=== PATIENT | female | born 1970 | race Caucasian/White ===

== ENCOUNTER 2016-08-31 08:15 | Emergency (ER) | payer OTHER ==
[2016-08-31] MEDS ORDERED: IBUPROFEN 600 MG TAB PO STA (08:33)
--- NOTE | 2016-08-31 08:37 | ED ---
Back Pain HPI - General Chief Complaint: Back Pain/Injury Stated Complaint: BACK PAIN FROM FALL DOWN 2 STEPS Time Seen by Provider: 08/31/16 08:29 Source: patient, RN notes reviewed Mode of arrival: ambulatory Limitations: no limitations - History of Present Illness Initial Comments: 46-year-old female presents emergency Department chief complaint low back pain. Patient states at 2:30 this morning she was letting her dog out when she slipped on the 2 steps of her tach. Patient states she fell directly onto her buttocks, back region. Patient denies any head injury, LOC. Patient states she did have some pain initially but states it was worse after she was sitting to drive to work. Patient denies any bowel, bladder incontinence or retention. Patient denies any saddle anesthesias or lower extremity paresthesias. Patient denies any pain that radiates down her lower extremities. Patient states she is able to ambulate though she states she has discomfort in her buttocks. Patient denies any abdominal pain including nausea, vomiting, diarrhea constipation. Patient offers no other injuries or complaints - Related Data Home Medications Medication Instructions Recorded Confirmed Thrive 1 tab PO DAILY 08/31/16 08/31/16 Triamterene-Hctz 37.5-25Mg 1 tab PO DAILY 08/31/16 08/31/16 [Maxzide 37.5-25] Previous Rx's Medication Instructions Recorded Hydrocodone/Acetaminophen [Van 1 tab PO Q6HR PRN #20 tab 08/31/16 5-325] Allergies Allergy/AdvReac Type Severity Reaction Status Date / Time codeine Allergy Unknown Verified 08/31/16 09:01 Review of Systems ROS Statement: Those systems with pertinent positive or pertinent negative responses have been documented in the HPI. ROS Other: All systems not noted in ROS Statement are negative. Past Medical History Past Medical History: Hypertension History of Any Multi-Drug Resistant Organisms: None Reported Past Surgical History: Orthopedic Surgery, Tonsillectomy Additional Past Surgical History / Comment(s): lt. wrist surgery knee Past Psychological History: No Psychological Hx Reported Smoking Status: Never smoker Past Alcohol Use History: Occasional Past Drug Use History: None Reported General Exam Limitations: no limitations General appearance: alert, in no apparent distress Head exam: Present: atraumatic, normocephalic, normal inspection Neck exam: Present: normal inspection, full ROM. Absent: tenderness, meningismus, lymphadenopathy Respiratory exam: Present: normal lung sounds bilaterally. Absent: respiratory distress, wheezes, rales, rhonchi, stridor Cardiovascular Exam: Present: regular rate, normal rhythm, normal heart sounds. Absent: systolic murmur, diastolic murmur, rubs, gallop, clicks GI/Abdominal exam: Present: soft, normal bowel sounds. Absent: distended, tenderness, guarding, rebound, rigid Extremities exam: Present: normal inspection, full ROM, normal capillary refill , other (Lower extremity strength equal bilaterally, neurovascular intact equal warmth equal color no rashes). Absent: tenderness, pedal edema, joint swelling , calf tenderness Back exam: Present: normal inspection, full ROM, tenderness (Moderate tenderness of the lower lumbar region, sacral), paraspinal tenderness (On the left lumbar region), vertebral tenderness. Absent: CVA tenderness (R), CVA tenderness (L) Neurological exam: Present: alert, oriented X3, CN II-XII intact, reflexes normal. Absent: motor sensory deficit Skin exam: Present: warm, dry, intact, normal color. Absent: rash Course Vital Signs 08/31/16 08:26 Temperature 97.8 F Pulse Rate 76 Respiratory 18 Rate Blood Pressure 120/80 O2 Sat by Pulse 96 Oximetry Medical Decision Making - Medical Decision Making 46-year-old female presented for fall back pain. There is no compression vertebral fractures noted. Patient will be discharged with pain medication and close follow-up. Return parameters were discussed. Disposition Clinical Impression: Fall, Back pain, Sacral contusion Disposition: HOME SELF-CARE Condition: Stable Instructions: Acute Low Back Pain (ED) Additional Instructions: Please return to the Emergency Department if symptoms worsen or any other concerns. Prescriptions: Hydrocodone/Acetaminophen [Van 5-325] 1 tab PO Q6HR PRN #20 tab PRN Reason: Pain Time of Disposition: 09:06
--- NOTE | 2016-08-31 08:55 | XR ---
EXAMINATION TYPE: XR lumbosacral spine min 4V DATE OF EXAM: 08/31/2016 8:50 AM COMPARISON: NONE HISTORY: 46-year-old female low back pain after fall downstairs TECHNIQUE: 5 views FINDINGS: 5 lumbar type vertebral bodies. No pars interarticularis defect. Mild multilevel disc interspace narr owing. Vertebral body heights are preserved and alignment is maintained. IMPRESSION: Mild multilevel degenerative disc disease. No vertebral compression collapse or malalignment.
[2016-08-31 09:25] VITALS: BP 126/88; PULSE 43; RESP 16; TEMP 97.5
== END 2016-08-31 09:23 | disposition home or self-care (01) ==
LOC: EC 08:15
DX: S30.0XXA Contusion of lower back and pelvis, initial encounter (principal); M54.5 Low back pain; Z88.5 Allergy status to narcotic agent; W10.9XXA Fall (on) (from) unspecified stairs and steps, initial encounter
CPT/HCPCS: 72110; 99283

== ENCOUNTER 2016-10-07 10:21 | Emergency (ER) | payer OTHER ==
[2016-10-07 10:36] VITALS: RESP 18
[2016-10-07] MEDS ORDERED: IBUPROFEN 800 MG TAB PO STA (10:56)
[2016-10-07] MEDS ORDERED: ACETAMINOPHEN TAB 500 MG TAB PO STA (10:56)
[2016-10-07] MEDS ORDERED: BENZONATATE 100 MG CAP PO STA (10:56)
[2016-10-07] MEDS ORDERED: DEXAMETHASONE SOD PHOSPHATE 10 MG/ML 1 ML VIAL IM STA (10:56)
[2016-10-07 11:11] VITALS: BP 130/79; PULSE 82; TEMP 98.9
--- NOTE | 2016-10-07 11:21 | ED ---
General Adult HPI - General Chief complaint: Upper Respiratory Infection Stated complaint: RESPITORY Time Seen by Provider: 10/07/16 10:39 Source: patient, RN notes reviewed, old records reviewed Mode of arrival: ambulatory Limitations: no limitations - History of Present Illness Initial comments: This is a 46-year-old female ER for evaluation of cough and congestion, runny nose as well as sinus pressure and low-grade fever. Patient's also complaining of aches and pains here patient's of hypo-pressure, denies any chest pain. No significant travel history or sick contacts. Symptoms on and off for the last 2 days. Patient mainly concerned with cough and congestion - Related Data Home Medications Medication Instructions Recorded Confirmed Triamterene-Hctz 37.5-25Mg 1 tab PO DAILY 08/31/16 10/07/16 [Maxzide 37.5-25] Previous Rx's Medication Instructions Recorded Acetaminophen Tab [Tylenol Tab] 500 mg PO Q4H PRN #30 tablet 10/07/16 Albuterol Inhaler [Ventolin Hfa 1 - 2 puff INHALATION Q6HR #1 10/07/16 Inhaler] inhaler Azithromycin [Zithromax Z-pack] 0 mg PO DIRECTED #6 tab 10/07/16 Benzonatate [Tessalon Perles] 100 mg PO TID PRN #30 capsule 10/07/16 Naproxen [Naprosyn] 500 mg PO Q12HR #30 tab 10/07/16 Oseltamivir [Tamiflu] 75 mg PO Q12HR #14 cap 10/07/16 Allergies Allergy/AdvReac Type Severity Reaction Status Date / Time codeine Allergy Unknown Verified 10/07/16 10:48 Review of Systems ROS Statement: Those systems with pertinent positive or pertinent negative responses have been documented in the HPI. ROS Other: All systems not noted in ROS Statement are negative. Past Medical History Past Medical History: Hypertension History of Any Multi-Drug Resistant Organisms: None Reported Past Surgical History: Orthopedic Surgery, Tonsillectomy Additional Past Surgical History / Comment(s): lt. wrist surgery knee Past Psychological History: No Psychological Hx Reported Smoking Status: Never smoker Past Alcohol Use History: Occasional Past Drug Use History: None Reported General Exam Limitations: no limitations General appearance: alert, in no apparent distress Head exam: Present: atraumatic, normocephalic, normal inspection Eye exam: Present: normal appearance, PERRL, EOMI. Absent: scleral icterus, conjunctival injection, periorbital swelling ENT exam: Present: normal exam, mucous membranes moist Neck exam: Present: normal inspection. Absent: tenderness, meningismus, lymphadenopathy Respiratory exam: Present: normal lung sounds bilaterally. Absent: respiratory distress, wheezes, rales, rhonchi, stridor Cardiovascular Exam: Present: regular rate, normal rhythm, normal heart sounds. Absent: systolic murmur, diastolic murmur, rubs, gallop, clicks GI/Abdominal exam: Present: soft, normal bowel sounds. Absent: distended, tenderness, guarding, rebound, rigid Extremities exam: Present: normal inspection, full ROM, normal capillary refill. Absent: tenderness, pedal edema, joint swelling, calf tenderness Back exam: Present: normal inspection Neurological exam: Present: alert, oriented X3, CN II-XII intact Psychiatric exam: Present: normal affect, normal mood Skin exam: Present: warm, dry, intact, normal color. Absent: rash Course Vital Signs 10/07/16 10/07/16 10:30 11:10 Temperature 98.4 F 98.9 F Pulse Rate 85 82 Respiratory 18 18 Rate Blood Pressure 135/96 130/79 O2 Sat by Pulse 98 99 Oximetry Medical Decision Making - Medical Decision Making 46 female in the ER for evaluation of URI symptoms, runny nose cough and congestion, patient concern for sinus infection, also with body aches and pains. Patient given adequate fevers control. Patient states she has no specific complaints, no acute distress for discharge home - Lab Data Lab Results 10/07/16 Range/Units 10:30 Influenza Type A RNA Not Detected (Not Detectd) Influenza Type B (PCR) Detected H (Not Detectd) Disposition Clinical Impression: Influenza, Upper respiratory infection Disposition: HOME SELF-CARE Condition: Good Instructions: Upper Respiratory Infection (ED), Influenza (ED) Prescriptions: Acetaminophen Tab [Tylenol Tab] 500 mg PO Q4H PRN #30 tablet PRN Reason: Fever Albuterol Inhaler [Ventolin Hfa Inhaler] 1 - 2 puff INHALATION Q6HR #1 inhaler Azithromycin [Zithromax Z-pack] 0 mg PO DIRECTED #6 tab Benzonatate [Tessalon Perles] 100 mg PO TID PRN #30 capsule PRN Reason: Cough Naproxen [Naprosyn] 500 mg PO Q12HR #30 tab Oseltamivir [Tamiflu] 75 mg PO Q12HR #14 cap Referrals: Jessica Díaz MD [Primary Care Provider] - 1-2 days
== END 2016-10-07 12:10 | disposition home or self-care (01) ==
LOC: EC 10:21
DX: J11.1 Influenza due to unidentified influenza virus with other respiratory manifestations (principal); I10 Essential (primary) hypertension; Z79.899 Other long term (current) drug therapy; Z88.5 Allergy status to narcotic agent
CPT/HCPCS: 87502; 99283; 96372; J1100; 90472

== ENCOUNTER → 2017-12-04 | Outpatient (CLI) | payer OTHER ==
--- NOTE | 2017-12-04 21:34 | MR ---
EXAMINATION TYPE: MR lumbar spine wo con DATE OF EXAM: 12/04/2017 COMPARISON: Plain film 08/31/2016 HISTORY: Low Back pain x2 months TECHNIQUE: Multiplanar, multisequence images of the lumbar spine were acquired. L1-L2: Normal disc appearance without desiccation. No herniation, protrusion or disc bulging. No ca nal stenosis is present. Foramina are patent bilaterally. L2-L3: Normal disc appearance without desiccation. No herniation, protrusion or disc bulging. No ca nal stenosis is present. Foramina are patent bilaterally. L3-L4: Normal disc appearance without desiccation. No herniation, protrusion or disc bulging. No ca nal stenosis is present. Foramina are patent bilaterally. L4-L5: Loss of disc height signal is compatible with disc desiccation and degenerative disc disease, there is endplate discogenic marrow signal change. No significant foraminal encroachment. Mild facet arthropathy with hypertrophy ligamentum flavum encroaches on the lateral recesses, no significant is. Posterior broad-based disc bulge causes only mild anterior effacement of the thecal sac. L5-S1: Some loss of disc height signal is present associated with endplate discogenic marrow signal c hange. Lateral extension of endplate disc complex causes some mild encroachment of the foramina great er on the left, posterior central broad-based disc bulge contacts anterior thecal sac and possibly th e proximal left S1 nerve root greater than right. There is some facet arthropathy present. Lumbar segments are intact. No paraspinal masses are identified. Conus medullaris has a normal appe arance. There is a mild spinal curvature. Central cord distally shows possible prominent central rico l or small 1 mm syrinx. IMPRESSION: Degenerative disc disease, spinal curvature, facet arthropathy. Findings in the distal cervical cord as described. Consider thoracic cord MRI.
== END | disposition home or self-care (01) ==
LOC: RADMRIMAIN 20:03
PROVIDERS: ATTEND Physical Medicine & Rehabilitation
DX: M51.16 Intervertebral disc disorders with radiculopathy, lumbar region (principal); M46.96 Unspecified inflammatory spondylopathy, lumbar region
CPT/HCPCS: 72148

== ENCOUNTER → 2017-12-13 | Outpatient (CLI) | payer OTHER ==
--- NOTE | 2017-12-13 09:06 | MR ---
EXAMINATION TYPE: MR thoracic spine wo con DATE OF EXAM: 12/13/2017 COMPARISON: MRI lumbar spine dated 12/04/2017 HISTORY: Abnormal MRI / Cord signal changes, thoracic, pain TECHNIQUE: Standard multiplanar, multisequence MRI of the thoracic spine was performed without contra st per departmental protocol FINDINGS: There is partial visualization of the C6-C7 vertebral level with annular tear and probable disc herniation. Within the thoracic vertebral levels there is no focal disc herniation, neural bala inal narrowing or spinal canal stenosis. Very small disc bulges are seen and T10-T11 and T11-T12. Mil d multilevel disc desiccation is seen throughout the thoracic spine. From approximately the T3-T4 interspace to the inferior endplate of T5 there is a 4.3 cm syrinx. 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 The thoracic vertebral bodies maintain normal vertebral body height and alignment. Bone marrow signal is unremarkable. Paraspinal muscles are also unremarkable. IMPRESSION: 1. Approximately 4.3 cm thoracic cord syrinx from the T3-T4 disc interspace level extending to the T5 level. This could be congenital or acquired. Congenital causes include Chiari malformation, Dandy-Wa lker malformation and Klippel-Feil syndrome. Acquired causes may be posttraumatic, postinflammatory, neoplastic or secondary to spinal canal stenosis. A probable disc herniation resulting in spinal rico l stenosis is seen cephalad to this at C6-C7 but only partially visualized on this thoracic exam. Cer vical spine MRI could be performed for further evaluation. 2. No evidence of disc herniation or spinal canal stenosis within the thoracic spine. Mild multilevel disc desiccation.
== END | disposition home or self-care (01) ==
LOC: RADMRIMAIN 07:18
PROVIDERS: ATTEND Physical Medicine & Rehabilitation
DX: M51.17 Intervertebral disc disorders with radiculopathy, lumbosacral region (principal); M47.27 Other spondylosis with radiculopathy, lumbosacral region; K21.9 Gastro-esophageal reflux disease without esophagitis; R20.2 Paresthesia of skin
CPT/HCPCS: 72146

== ENCOUNTER 2018-04-07 15:53 | Emergency (ER) | payer OTHER ==
[2018-04-07 16:00] VITALS: RESP 18; TEMP 98.7
[2018-04-07] MEDS ORDERED: KETOROLAC 30 MG/ML 1 ML VIAL IVP STA (16:24)
[2018-04-07] MEDS ORDERED: SODIUM CHLORIDE 0.9% 1,000 ML IV ONE (16:24)
[2018-04-07] MEDS ORDERED: DICYCLOMINE 20 MG TAB PO STA (16:24)
--- NOTE | 2018-04-07 16:28 | ED ---
Abdominal Pain HPI - General Chief Complaint: Abdominal Pain Stated Complaint: Abd pain Time Seen by Provider: 04/07/18 16:07 Source: patient Mode of arrival: ambulatory Limitations: no limitations - History of Present Illness Initial Comments: Patient is a 47-year-old female presents with a chief complaint of lower abdominal pain. This is been going on for 2 days. Patient cannot identify an inciting incident. There no aggravating or alleviating factors. Patient admits to chills but has not measured a fever. She admits to decreased appetite , and worsening of her pain with eating. Patient states she has had 2-3 bowel movements today that are softer than normal. She states that she is currently on her period though she has had an ablation, and a tubal ligation. Patient does not have any abdominal surgeries in the past. - Related Data Home Medications Medication Instructions Recorded Confirmed Triamterene-Hctz 37.5-25Mg 1 tab PO DAILY 08/31/16 04/07/18 [Maxzide 37.5-25] Ibuprofen [Motrin Ib] 600 mg PO Q8H PRN 04/07/18 04/07/18 Previous Rx's Medication Instructions Recorded Acetaminophen Tab [Tylenol Tab] 1,000 mg PO Q8H #20 tablet 04/07/18 Ciprofloxacin HCl 500 mg PO BID #14 tablet 04/07/18 Dicyclomine [Bentyl] 20 mg PO QID #20 tablet 04/07/18 Ibuprofen [Motrin] 800 mg PO Q8H #20 tab 04/07/18 Ondansetron Odt [Zofran Odt] 4 mg PO Q8HR PRN #12 tab 04/07/18 metroNIDAZOLE [Flagyl] 500 mg PO Q8HR #21 tab 04/07/18 Allergies Allergy/AdvReac Type Severity Reaction Status Date / Time codeine Allergy Unknown Verified 04/07/18 16:11 Review of Systems ROS Statement: Those systems with pertinent positive or pertinent negative responses have been documented in the HPI. ROS Other: All systems not noted in ROS Statement are negative. Gastrointestinal: Reports: abdominal pain Past Medical History Past Medical History: Hypertension History of Any Multi-Drug Resistant Organisms: None Reported Past Surgical History: Orthopedic Surgery, Tonsillectomy Additional Past Surgical History / Comment(s): lt. wrist surgery knee Past Psychological History: No Psychological Hx Reported Smoking Status: Never smoker Past Alcohol Use History: Occasional Past Drug Use History: None Reported General Exam Limitations: no limitations General appearance: alert, in no apparent distress Head exam: Present: atraumatic, normocephalic Eye exam: Present: normal appearance ENT exam: Present: normal exam Neck exam: Present: normal inspection Respiratory exam: Present: normal lung sounds bilaterally. Absent: respiratory distress, wheezes Cardiovascular Exam: Present: regular rate, normal rhythm GI/Abdominal exam: Present: soft, tenderness (Patient has tenderness to palpation in the left and right lower quadrants.). Absent: distended Rectal exam: Present: deferred Extremities exam: Present: normal inspection Back exam: Present: normal inspection, full ROM. Absent: CVA tenderness (R), CVA tenderness (L) Neurological exam: Present: alert, oriented X3 Psychiatric exam: Present: normal affect, normal mood Skin exam: Present: warm, dry, intact Course Vital Signs 04/07/18 15:57 Temperature 98.7 F Pulse Rate 98 Respiratory 18 Rate Blood Pressure 140/77 O2 Sat by Pulse 100 Oximetry Medical Decision Making - Medical Decision Making Patient presents with chief complaint of abdominal pain. On initial evaluation , vitals are stable, patient is noted to distress. She is reevaluated basic labs including liver profile and lipase, urinalysis, urine test. Patient to be evaluated with a computed tomography scan of the abdomen and pelvis with IV contrast. 5:50 PM E evaluation of this patient is unremarkable. Computed tomography scan of the pelvis shows a focal area of diverticulitis with fat stranding around the affected colon. There is no evidence of abscess or perforation. Appendix appears normal. On reevaluation, the patient states that she feels somewhat improved. She was started on ciprofloxacin and Flagyl in the emergency department. She'll be prescribed ciprofloxacin, Flagyl, Zofran, Motrin, and Tylenol. She was instructed on the use of these medications. She was instructed to follow-up with primary care in 1-2 days, return to the emergency department if new or worsening symptoms occur. - Lab Data Result diagrams: 04/07/18 16:24 04/07/18 16:24 Lab Results 04/07/18 04/07/18 04/07/18 Range/Units 16:24 16:24 16:24 WBC 7.5 (3.8-10.6) k/uL RBC 4.00 (3.80-5.40) m/uL Hgb 12.3 (11.4-16.0) gm/dL Hct 36.2 (34.0-46.0) % MCV 90.3 (80.0-100.0) fL MCH 30.8 (25.0-35.0) pg MCHC 34.2 (31.0-37.0) g/dL RDW 12.6 (11.5-15.5) % Plt Count 231 (150-450) k/uL Neutrophils % 72 % Lymphocytes % 19 % Monocytes % 4 % Eosinophils % 4 % Basophils % 1 % Neutrophils # 5.4 (1.3-7.7) k/uL Lymphocytes # 1.4 (1.0-4.8) k/uL Monocytes # 0.3 (0-1.0) k/uL Eosinophils # 0.3 (0-0.7) k/uL Basophils # 0.0 (0-0.2) k/uL Sodium 140 (137-145) mmol/L Potassium 3.1 L (3.5-5.1) mmol/L Chloride 103 (98-107) mmol/L Carbon Dioxide 26 (22-30) mmol/L Anion Gap 11 mmol/L BUN 14 (7-17) mg/dL Creatinine 0.82 (0.52-1.04) mg/dL Est GFR (CKD-EPI)AfAm >90 (>60 ml/min/1.73 sqM) Est GFR (CKD-EPI)NonAf 87 (>60 ml/min/1.73 sqM) Glucose 110 H (74-99) mg/dL Calcium 9.1 (8.4-10.2) mg/dL Total Bilirubin 1.0 (0.2-1.3) mg/dL AST 18 (14-36) U/L ALT 20 (9-52) U/L Alkaline Phosphatase 55 (38-126) U/L Total Protein 6.6 (6.3-8.2) g/dL Albumin 3.8 (3.5-5.0) g/dL Lipase 165 (23-300) U/L HCG, Qual Not Detected Urine Color Light Yellow Urine Appearance Clear (Clear) Urine pH 6.5 (5.0-8.0) Ur Specific Mallory 1.005 (1.001-1.035) Urine Protein Negative (Negative) Urine Glucose (UA) Negative (Negative) Urine Ketones Negative (Negative) Urine Blood Trace H (Negative) Urine Nitrite Negative (Negative) Urine Bilirubin Negative (Negative) Urine Urobilinogen <2.0 (<2.0) mg/dL Ur Leukocyte Esterase Negative (Negative) Urine RBC 1 (0-5) /hpf Urine WBC 1 (0-5) /hpf Ur Squamous Epith Cells 2 (0-4) /hpf Urine Bacteria Occasional H (None) /hpf Disposition Clinical Impression: Diverticulitis Disposition: HOME SELF-CARE Condition: Good Prescriptions: Acetaminophen Tab [Tylenol Tab] 1,000 mg PO Q8H #20 tablet Ciprofloxacin HCl 500 mg PO BID #14 tablet Ibuprofen [Motrin] 800 mg PO Q8H #20 tab metroNIDAZOLE [Flagyl] 500 mg PO Q8HR #21 tab Ondansetron Odt [Zofran Odt] 4 mg PO Q8HR PRN #12 tab PRN Reason: Nausea Is patient prescribed a controlled substance at d/c from ED?: No Referrals: Jessica Díaz MD [Primary Care Provider] - 1-2 days
[2018-04-07 16:44] LABS: Basophils % (A) 1 %; Eosinophils # (A) 0.3 k/uL (0-0.7); Eosinophils % (A) 4 %; HCT 36.2 % (34.0-46.0); HGB 12.3 gm/dL (11.4-16.0); Lymphocytes # (A) 1.4 k/uL (1.0-4.8); Lymphocytes % (A) 19 %; MCH 30.8 pg (25.0-35.0); MCHC 34.2 g/dL (31.0-37.0); MCV 90.3 fL (80.0-100.0); Mean Platelet Volume 6.3; Monocytes # (A) 0.3 k/uL (0-1.0); Monocytes % (A) 4 %; Neutrophils # (A) 5.4 k/uL (1.3-7.7); Neutrophils % (A) 72 %; Platelet Count 231 k/uL (150-450); RDW 12.6 % (11.5-15.5); WBC 7.5 k/uL (3.8-10.6)
[2018-04-07 16:50] LABS: Appearance,Urine Clear (Clear); Bacteria,Urine Occasional /hpf; Bilirubin,Urine Negative (Negative); Blood,Urine Trace (Negative); Color,Urine Light Yellow; Glucose,Urine (UA) Negative (Negative); Ketones,Urine Negative (Negative); Leukocyte Esterase,Urine Negative (Negative); Nitrite,Urine Negative (Negative); PH, Urine 6.5 (5.0-8.0); Protein,Urine Negative (Negative); RBC,Urine 1 /hpf (0-5); Specific Gravity,Urine 1.005 (1.001-1.035); Squamous Epithelial Cell,Urine 2 /hpf (0-4); Urobilinogen,Urine <2.0 mg/dL (<2.0); WBC,Urine 1 /hpf (0-5)
[2018-04-07 16:55] LABS: ALT 20 U/L (9-52); AST 18 U/L (14-36); Albumin 3.8 g/dL (3.5-5.0); Alkaline Phosphatase 55 U/L (38-126); Anion Gap 11 mmol/L; Blood Urea Nitrogen 14 mg/dL (7-17); Calcium 9.1 mg/dL (8.4-10.2); Carbon Dioxide 26 mmol/L (22-30); Chloride 103 mmol/L (98-107); Glucose 110 mg/dL (74-99); Lipase 165 U/L (23-300); Potassium 3.1 mmol/L (3.5-5.1); Sodium 140 mmol/L (137-145); Total Protein 6.6 g/dL (6.3-8.2)
[2018-04-07 16:58] LABS: HCG,Qualitative Serum Not Detected
--- NOTE | 2018-04-07 17:17 | CT ---
EXAMINATION TYPE: CT abdomen pelvis w con DATE OF EXAM: 04/07/2018 COMPARISON: None HISTORY: lower abdominal pain CT DLP: 1166.9 mGycm Automated exposure control for dose reduction was used. TECHNIQUE: Helical acquisition of images was performed from the lung bases through the pelvis. CONTRAST: Performed without Oral Contrast and with IV Contrast, patient injected with 100mL mL of Isovue 300. FINDINGS: There is mild subsegmental atelectasis at the posterior lung bases. There is no pleural effusion. Hea rt size is normal. Liver spleen pancreas appear normal. Gallbladder is contracted. Bile ducts are not dilated. There is no adrenal mass. Kidneys show satisfactory contrast opacification. There is no hydronephrosi s. Ureters are not dilated. There is no retroperitoneal adenopathy. Appendix appears normal. There is mild fat stranding around the mid sigmoid colon. There are surgical clips from apparent tubal ligati on. There is mild wall thickening on the mid sigmoid colon. Bladder distends smoothly. Uterus is ante verted. There is no free fluid in the pelvis. There is no sign of free air. Lumbar spine is intact. T here is no evidence of a hernia. IMPRESSION: THERE IS MILD FAT STRANDING AROUND THE MID SIGMOID COLON CONSISTENT WITH MILD FOCAL DIVERTICULITIS. T HERE ARE A FEW SCATTERED SIGMOID DIVERTICULA. NO ABSCESS. NORMAL APPENDIX.
[2018-04-07] MEDS ORDERED: CIPROFLOXACIN HCL 500 MG TAB PO STA (17:46)
[2018-04-07] MEDS ORDERED: metroNIDAZOLE 500 MG TAB PO STA (17:46)
[2018-04-07 18:00] VITALS: BP 125/76; PULSE 67
== END 2018-04-07 18:09 | disposition home or self-care (01) ==
LOC: EC 15:53
DX: K57.32 Diverticulitis of large intestine without perforation or abscess without bleeding (principal); I10 Essential (primary) hypertension; Z88.5 Allergy status to narcotic agent; Z79.899 Other long term (current) drug therapy; Z98.51 Tubal ligation status
CPT/HCPCS: 36415; 80053; 83690; 85025; 81001; 84703; 74177; 99284; 96374; 96361; J1885; Q9967

== ENCOUNTER → 2018-12-20 | Outpatient (CLI) | payer OTHER ==
--- NOTE | 2018-12-21 06:42 | MR ---
EXAMINATION TYPE: MR thoracic spine wo con DATE OF EXAM: 12/20/2018 COMPARISON: MRI thoracic spine December 13, 2017. HISTORY: Abnormal MRI, mid back pain, thoracic cord syrinx. TECHNIQUE: Multiplanar, multisequence imaging of thoracic spine is performed without contrast FINDINGS: There is redemonstration of posterior disc herniation effacing the anterior thecal sac at C 6-C7 level on sagittal image 9. There is redemonstration of central canal prominence or syrinx beginn ing inferior T3 level extending through the inferior T5 vertebra over roughly 4.2 cm segment, there a re smaller syrinxes identified below this for reference. T6 level sagittal image 9 as well as T7 and T8 involvement sagittal image 8. No significant change from prior. Alignment is stable. Vertebral bod y heights are maintained. No large posterior disc herniations are seen on sagittal images. Bone marro w signal intensity is preserved. Axial images confirm larger area of syrinx centered near the T4 vertebra. Smaller syrinx inferior to this is redemonstrated. There is involvement also identified in the lower thoracic spinal canal for r eference axial image 3 near the thoracolumbar junction. No suspicious disc herniations are present. IMPRESSION: Overall stable findings, long segment syrinx of the thoracic spinal cord most prominent c entered near the T4 vertebra.
== END | disposition home or self-care (01) ==
LOC: RADMRIMAIN 16:45
PROVIDERS: ATTEND Physical Medicine & Rehabilitation
DX: G95.0 Syringomyelia and syringobulbia (principal)
CPT/HCPCS: 72146

== ENCOUNTER → 2019-03-19 | Outpatient (CLI) | payer BC ==
--- NOTE | 2019-03-20 18:39 | US ---
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 GLAND SIZE: Right Lobe: 4.3 x 1.3 x 1.5 cm Overall Parenchyma: homogenous Left Lobe: 4.5 x 1.1 x 1.3 cm Overall Parenchyma: homogeneous Isthmus Thickness: 0.4 cm NODULES RIGHT: # of nodules measured on right: 0 LEFT: # of nodules measured on left: 0 ISTHMUS: # of nodules measured in the isthmus: 0 Bilateral neck scanned, no evidence of lymphadenopathy. Normal thyroid ultrasound. IMPRESSION: 1. Normal thyroid
== END | disposition home or self-care (01) ==
LOC: RADUSWWP 17:01
PROVIDERS: ATTEND Internal Medicine
DX: E01.0 Iodine-deficiency related diffuse (endemic) goiter (principal)
CPT/HCPCS: 76536

== ENCOUNTER → 2021-04-01 | Outpatient (CLI) | payer BC ==
[2021-04-01 19:16] LABS: Basophils # (A) 0.04 X 10*3/uL (0.00-0.10); Basophils % (A) 0.6 %; Eosinophils # (A) 0.28 X 10*3/uL (0.04-0.35); Eosinophils % (A) 4.1 %; HCT 40.9 % (37.2-46.3); HGB 13.5 g/dL (12.0-15.0); Lymphocytes # (A) 2.07 X 10*3/uL (0.90-5.00); Lymphocytes % (A) 30.4 %; MCH 30.5 pg (27.0-32.0); MCV 92.5 fL (80.0-97.0); Mean Platelet Volume 9.6 fL (9.5-12.2); Monocytes # (A) 0.55 X 10*3/uL (0.20-1.00); Monocytes % (A) 8.1 %; Neutrophils # (A) 3.85 X 10*3/uL (1.80-7.70); Neutrophils % (A) 56.4 %; Platelet Count 331 X 10*3/uL (140-440); RBC 4.42 X 10*6/uL (4.10-5.20); RDW 13.2 % (11.5-14.5); WBC 6.82 X 10*3/uL (4.50-10.00)
[2021-04-02 01:36] LABS: African American GFR (CKD) 56.2 (60.0-200.0); Albumin 4.6 g/dL (3.80-4.90); Albumin/Globulin Ratio 1.77 (1.60-3.17); BUN/Creat Ratio 11.54 Ratio (12.00-20.00); Calcium 9.7 mg/dL (8.7-10.3); Chol/HDL Ratio 5.53; Globulin 2.6 g/dL (1.6-3.3); Non-African American GFR(CKD) 48.5 (60.0-200.0); Potassium 3.8 mmol/L (3.5-5.5); Total Bilirubin 1.2 mg/dL (0.2-1.2); Total Protein 7.2 g/dL (6.2-8.2)
== END | disposition home or self-care (01) ==
LOC: LABWHC1 09:09
PROVIDERS: ATTEND Internal Medicine
DX: Z00.01 Encounter for general adult medical examination with abnormal findings (principal); Z13.220 Encounter for screening for lipoid disorders; Z13.228 Encounter for screening for other metabolic disorders; I10 Essential (primary) hypertension
CPT/HCPCS: 36415; 80053; 80061; 85025

== ENCOUNTER 2021-06-02 20:27 | Observation (INO) | payer BC, OTHER ==
[2021-06-02 21:29] LABS: Basophils # (A) 0.1 k/uL (0-0.2); Basophils % (A) 1 %; Eosinophils # (A) 0.3 k/uL (0-0.7); Eosinophils % (A) 4 %; HCT 37.6 % (34.0-46.0); HGB 12.9 gm/dL (11.4-16.0); Lymphocytes # (A) 2.4 k/uL (1.0-4.8); Lymphocytes % (A) 34 %; MCH 30.5 pg (25.0-35.0); MCHC 34.4 g/dL (31.0-37.0); MCV 88.7 fL (80.0-100.0); Mean Platelet Volume 6.8; Monocytes # (A) 0.4 k/uL (0-1.0); Monocytes % (A) 5 %; Neutrophils # (A) 3.9 k/uL (1.3-7.7); Neutrophils % (A) 55 %; Platelet Count 338 k/uL (150-450); RBC 4.24 m/uL (3.80-5.40); RDW 13.4 % (11.5-15.5); WBC 7.2 k/uL (3.8-10.6)
[2021-06-02 21:35] LABS: Albumin 3.9 g/dL (3.5-5.0); Magnesium 1.9 mg/dL (1.6-2.3); Potassium 3.2 mmol/L (3.5-5.1); Total Bilirubin 0.8 mg/dL (0.2-1.3); Total Protein 6.9 g/dL (6.3-8.2)
[2021-06-02] MEDS ORDERED: LABETALOL 5 MG/ML VIAL MDV IVP STA (21:35)
[2021-06-02 21:43] LABS: INR 0.9 (<1.2); Partial Thromboplastin Time 22.4 sec (22.0-30.0); Prothrombin Time 9.5 sec (9.0-12.0)
--- NOTE | 2021-06-02 22:02 | XR ---
EXAMINATION TYPE: XR chest 2V DATE OF EXAM: 06/02/2021 COMPARISON: NONE HISTORY: Chest pain TECHNIQUE: 2 views FINDINGS: There is no heart failure nor confluent pneumonic infiltrate. Costophrenic angles are clear . Bony thorax is intact. There are chest leads. IMPRESSION: No active cardiomegaly disease.
[2021-06-02 22:10] LABS: Acetaminophen <10.0 ug/mL; Magnesium 1.9 mg/dL (1.6-2.3); Phosphorus 2.6 mg/dL (2.5-4.5); Salicylate <1.0 mg/dL
[2021-06-02] MEDS ORDERED: POTASSIUM BICARBONATE/CIT AC 20 MEQ TABLET.EFF PO ONE (22:30)
--- NOTE | 2021-06-02 22:58 | ED ---
Chest Pain HPI - General Chief Complaint: Chest Pain Stated Complaint: Chest pain, SOB Time Seen by Provider: 06/02/21 21:13 Source: patient Mode of arrival: ambulatory - Related Data Home Medications Medication Instructions Recorded Confirmed Metoprolol Tartrate [Lopressor] 25 mg PO BID 06/02/21 06/02/21 Ozempic 4mg/3ml 1 mg SQ SA 06/02/21 06/02/21 Venlafaxine HCl ER [Effexor Xr] 75 mg PO DAILY 06/02/21 06/02/21 amLODIPine [Norvasc] 5 mg PO DAILY 06/02/21 06/02/21 traMADol HCL 50 - 100 mg PO TID PRN 06/02/21 06/02/21 Allergies Allergy/AdvReac Type Severity Reaction Status Date / Time codeine Allergy Unknown Verified 06/02/21 22:50 losartan AdvReac Rash/Hives Verified 06/02/21 22:50 Review of Systems ROS Statement: Those systems with pertinent positive or pertinent negative responses have been documented in the HPI. ROS Other: All systems not noted in ROS Statement are negative. Past Medical History Past Medical History: Hypertension History of Any Multi-Drug Resistant Organisms: None Reported Past Surgical History: Hysterectomy, Orthopedic Surgery, Tonsillectomy Additional Past Surgical History / Comment(s): lt. wrist surgery knee, back injectiond for compressed discs Past Psychological History: No Psychological Hx Reported Smoking Status: Never smoker Past Alcohol Use History: Occasional Past Drug Use History: None Reported Course Vital Signs 06/02/21 06/02/21 06/02/21 21:14 21:56 22:45 Pulse Rate 82 73 Respiratory 18 18 18 Rate Blood Pressure 167/113 179/120 176/119 O2 Sat by Pulse 98 99 98 Oximetry 06/02/21 06/03/21 23:42 00:56 Pulse Rate 77 Respiratory 18 Rate Blood Pressure 159/111 148/103 O2 Sat by Pulse Oximetry Procedures - Ford Protocol (Time Out) Nurse: Jeannine Nuñez Disposition Clinical Impression: Chest pain, Hypertension, Uncontrolled hypertension Disposition: ADMITTED IP TO THIS HOSP Condition: Undetermined Is patient prescribed a controlled substance at d/c from ED?: No Referrals: Fani Hernadez MD [Primary Care Provider] - 1-2 days
--- NOTE | 2021-06-02 23:26 | CT ---
EXAMINATION TYPE: CT angio chest DATE OF EXAM: 06/02/2021 COMPARISON: None HISTORY: left side chest pain CT DLP: 644.6 mGycm Automated exposure control for dose reduction was used. CONTRAST: Performed with IV Contrast, patient injected with 60 mL of Isovue 370. There are 3-D post processed images. The lungs are clear of infiltrate. There is no evidence of a pulmonary mass. There is subsegmental at electasis at the lung bases. There is no pleural effusion. Heart size is normal. There is no pericard ial effusion. There are no hilar masses. There is no mediastinal adenopathy. Thoracic aorta is intact. Ascending ao rta measures 3.8 cm. There is no dissection. There is normal contrast opacification of the pulmonary arteries. There are no filling defects. The thoracic spine is intact. There is no compression fracture. Sternum is intact. The ribs appear in tact. IMPRESSION: No evidence of pulmonary embolism.
[2021-06-03 00:19] LABS: Amphetamine Screen,Urine Not Detected (NotDetected); Barbiturate Screen,Urine Not Detected (NotDetected); Benzodiazepines Screen,Urine Not Detected (NotDetected); Cocaine Screen,Urine Not Detected (NotDetected); Methadone Screen, Urine Not Detected (NotDetected); Opiate Screen,Urine Not Detected (NotDetected); Oxycodone Screen, Urine Not Detected (NotDetected); Phencyclidine Screen,Urine Not Detected (NotDetected); Tricyclic Antidepressant,Urine Not Detected (NotDetected); Urn Cannabinoid Scrn Not Detected (NotDetected)
[2021-06-03] MEDS ORDERED: MORPHINE SULFATE 4 MG/ML SYRINGE IV PRN (01:15)
[2021-06-03] MEDS ORDERED: NITROGLYCERIN SL TABS 0.4 MG TAB SUBLINGUAL PRN (01:15)
[2021-06-03] MEDS ORDERED: ASPIRIN 81 MG PO STA (01:15)
[2021-06-03] MEDS ORDERED: SODIUM CHLORIDE 0.9% 1,000 ML IV SCH (01:15)
--- NOTE | 2021-06-03 08:15 | P.CRDCN ---
History of Present Illness History of present illness: HISTORY OF PRESENTING ILLNESS This is a pleasant 50-year-old female past medical history significant for hypertension, compressed disc. She follows with Dr. Hernadez. She does not follow with a community representative. We have been asked to see in consultation for chest pain. Patient presents to the emergency department with chest tightness that started at 6:30 PM yesterday. Chest tightness is located in the center of her chest/right sided. It radiates to her back. She states it is aggravated by activity/exertion. She states it improved by laying on her left side. She did have associated mild shortness of breath. She denies any associated palpitations, diaphoresis, nausea, vomiting, lightheadedness, dizziness. She denies any symptoms of presyncope or syncope. She denies any symptoms of orthopnea or PND. She denies history or current tobacco use. She states she had the same pain at 1 AM but is now resolved. Denies history of diabetes, coronary disease, PR, stroke. She denies a family history of heart disease. She states her blood pressure management, she was on triamterene and lisinopril however had acute kidney injury and these medications were stopped. She also was started on losartan and she states she broke out in hives and this medication was stopped. DIAGNOSTICS EKG reveals sinus rhythm, heart rate 75, no significant ST or T-wave abnormalities. Telemetry tracings indicate sinus mechanism heart rate in the 70s CT chest revealed no pulmonary embolism. Abdominal aorta 3.8 cm. Chest xray no acute cardiopulmonary process Laboratory reviewed, CBC unremarkable, troponin negative 2, d-dimer 0.78, sodium 137, potassium 4.2, BUN 13, serum 0.9, TSH within normal limits, proBNP 117, urine toxicology negative, COVID-19 PCR negative Current home medications include Effexor 75 mg daily, amlodipine 5 mg daily, metoprolol tartrate 25 mg twice a day REVIEW OF SYSTEMS At the time of my exam: CONSTITUTIONAL: Denies fever or chills. CARDIOVASCULAR:+chest pain, +shortness of breath, Denies orthopnea, PND or palpitations. RESPIRATORY: Denies cough. GASTROINTESTINAL: Denies abdominal pain, diarrhea, constipation, nausea or vomiting. MUSCULOSKELETAL: Denies myalgias. NEUROLOGIC: Denies numbness, tingling, headache or weakness. ENDOCRINE: Denies fatigue, weight change, polydipsia or polyurina. GENITOURINARY: Denies burning, hematuria or urgency with micturation. HEMATOLOGIC: Denies history of anemia or bleeding. PHYSICAL EXAMINATION Blood pressure 161/108, heart 73, afebrile oxygen saturation is 96% on room air CONSTITUTIONAL: No apparent distress. HEENT: Head is normocephalic. Pupils are equal, round. Sclerae anicteric. Mucous membranes of the mouth are moist. No JVD. No carotid bruit. CHEST EXAMINATION: Lungs are clear to auscultation. No chest wall tenderness is noted on palpation or with deep breathing. HEART EXAMINATION: Regular rate and rhythm. S1, S2 heard. No murmurs, gallops or rub. ABDOMEN: Soft, nontender. Positive bowel sounds. EXTREMITIES: 2+ peripheral pulses, no lower extremity edema and no calf tenderness. SKIN: warm, dry NEUROLOGIC EXAMINATION: Patient is awake, alert and oriented x3. ASSESSMENT Chest pain, atypical, acute coronary symptoms ruled out History of hypertension PLAN An acute coronary event has been ruled out with no EKG evidence of ischemia and negative cardiac enzymes. Obtain 2D echocardiogram and doppler study to assess cardiac structure and function. Lipid panel pending Perform stress echo test to assess for stress induced cardiac ischemia. If abnormal will consider coronary angiography. If stress test is normal, and echocardiogram with no acute findings. Okay to discharge from cardiology perspective. Thank you kindly for this consultation. Nurse Practitioner note has been reviewed, I agree with a documented findings and plan of care. Patient was seen and examined. Past Medical History Past Medical History: Hypertension History of Any Multi-Drug Resistant Organisms: None Reported Past Surgical History: Hysterectomy, Orthopedic Surgery, Tonsillectomy Additional Past Surgical History / Comment(s): lt. wrist surgery knee, back injectiond for compressed discs Past Anesthesia/Blood Transfusion Reactions: No Reported Reaction Past Psychological History: No Psychological Hx Reported Smoking Status: Never smoker Past Alcohol Use History: Occasional Past Drug Use History: None Reported Medications and Allergies Home Medications Medication Instructions Recorded Confirmed Type Metoprolol Tartrate [Lopressor] 25 mg PO BID 06/02/21 06/02/21 History Ozempic 4mg/3ml 1 mg SQ SA 06/02/21 06/02/21 History Venlafaxine HCl ER [Effexor Xr] 75 mg PO DAILY 06/02/21 06/02/21 History amLODIPine [Norvasc] 5 mg PO DAILY 06/02/21 06/02/21 History traMADol HCL 50 - 100 mg PO TID PRN 06/02/21 06/02/21 History Allergies Allergy/AdvReac Type Severity Reaction Status Date / Time codeine Allergy Unknown Verified 06/02/21 22:50 losartan AdvReac Rash/Hives Verified 06/02/21 22:50 Physical Exam Vitals: Vital Signs Temp Pulse Pulse Resp BP BP Pulse Ox 06/03/21 02:54 97.7 F 73 16 161/108 96 06/03/21 02:29 79 18 148/92 97 06/03/21 01:30 80 18 146/80 06/03/21 01:00 79 18 153/99 97 06/03/21 00:56 77 18 148/103 06/02/21 23:42 159/111 06/02/21 22:45 18 176/119 98 06/02/21 21:56 73 18 179/120 99 06/02/21 21:14 82 18 167/113 98 Intake and Output 06/02/21 06/03/21 06/03/21 22:59 06:59 14:59 Other: # Voids 1 Weight 113.398 kg 113.398 kg Results 06/02/21 21:17 06/02/21 21:17 Cardiac Enzymes 06/02/21 06/02/21 06/03/21 Range/Units 21:17 21:17 03:22 AST 20 (14-36) U/L Troponin I <0.012 <0.012 (0.000-0.034) ng/mL Coagulation 06/02/21 Range/Units 21:17 PT 9.5 (9.0-12.0) sec APTT 22.4 (22.0-30.0) sec CBC 06/02/21 Range/Units 21:17 WBC 7.2 (3.8-10.6) k/uL RBC 4.24 (3.80-5.40) m/uL Hgb 12.9 (11.4-16.0) gm/dL Hct 37.6 (34.0-46.0) % Plt Count 338 (150-450) k/uL Comprehensive Metabolic Panel 06/02/21 Range/Units 21:17 Sodium 137 (137-145) mmol/L Potassium 3.2 L (3.5-5.1) mmol/L Chloride 105 (98-107) mmol/L Carbon Dioxide 21 L (22-30) mmol/L BUN 13 (7-17) mg/dL Creatinine 0.90 (0.52-1.04) mg/dL Glucose 106 H (74-99) mg/dL Calcium 9.0 (8.4-10.2) mg/dL AST 20 (14-36) U/L ALT 17 (4-34) U/L Alkaline Phosphatase 67 (38-126) U/L Total Protein 6.9 (6.3-8.2) g/dL Albumin 3.9 (3.5-5.0) g/dL Current Medications Generic Name Dose Route Start Last Admin Trade Name Freq PRN Reason Stop Dose Admin Amlodipine Besylate 5 mg 06/03/21 09:00 Amlodipine 5 Mg Tab PO BID [facility] Aspirin 81 mg 06/04/21 09:00 Aspirin 81 Mg PO DAILY [facility] Atorvastatin Calcium 80 mg 06/03/21 09:00 Atorvastatin 80 Mg Tab PO DAILY [facility] Sodium Chloride 1,000 mls @ 20 mls/hr 06/03/21 01:15 06/03/21 03:05 Saline 0.9% IV Not Given .Q24H [facility] Metoprolol Tartrate 25 mg 06/03/21 09:00 Metoprolol Tartrate 25 Mg Tab PO BID [facility] Morphine Sulfate 4 mg 06/03/21 01:15 Morphine Sulfate 4 Mg/Ml Syringe IV Q4HR PRN Chest Pain Nitroglycerin 0.4 mg 06/03/21 01:15 Nitroglycerin Sl Tabs 0.4 Mg Tab SUBLINGUAL Q5M PRN Chest Pain Intake and Output 06/02/21 06/03/21 06/03/21 22:59 06:59 14:59 Other: # Voids 1 Weight 113.398 kg 113.398 kg 06/02/21 21:17 06/02/21 21:17
[2021-06-03 08:57] VITALS: RESP 17; TEMP 98.2
[2021-06-03] MEDS ORDERED: amLODIPine 5 MG TAB PO SCH ×2 (09:00)
[2021-06-03] MEDS ORDERED: METOPROLOL TARTRATE 25 MG TAB PO SCH ×2 (09:00→11:00)
[2021-06-03] MEDS ORDERED: ACETAMINOPHEN TAB 325 MG TAB PO PRN (09:00)
[2021-06-03] MEDS ORDERED: ATORVASTATIN 80 MG TAB PO SCH (09:00)
--- NOTE | 2021-06-03 12:01 | ECHOF ---
Referral Reason:chest pain and shortness of breath MEASUREMENTS -------- HEIGHT: 175.3 cm WEIGHT: 113.4 kg BP: IVSd: 1.0 cm (0.6 - 1.1) LVIDd: 4.5 cm (3.9 - 5.3) LVPWd: 1.3 cm (0.6 - 1.1) IVSs: 1.5 cm LVIDs: 2.9 cm LVPWs: 1.6 cm Ao Diam: 3.2 cm (2.0 - 3.7) AV Cusp: 2.1 cm (1.5 - 2.6) LA Diam: 2.3 cm (2.7 - 3.8) MV EXCURSION: 10.933 mm (> 18.000) MV EF SLOPE: 85 mm/s (70 - 150) EPSS: 0.5 cm MV E Chad: 0.97 m/s MV DecT: 158 ms MV A Chad: 1.22 m/s MV E/A Ratio: 0.79 AV maxP.43 mmHg AV meanP.88 mmHg RAP: 5.00 mmHg RVSP: 33.96 mmHg FINDINGS -------- Sinus rhythm. This was a technically difficult study with suboptimal views. The left ventricular size is normal. Left ventricular wall thickness is normal. Overall left vent ricular systolic function is normal with, an EF between 55 - 60 %. The right ventricle is normal in size. The left atrial size is normal. The right atrial size is normal. Lumason used There is mild aortic valve sclerosis. Peak/mean gradient across the Aortic Valve is 15.43mmHg / 7.8 8mmHg. The mitral valve is normal. Mild mitral regurgitation is present. The tricuspid valve appears structurally normal. Mild tricuspid regurgitation present. Right vent ricular systolic pressure is normal at < 35 mmHg. There is no pulmonic regurgitation present. The aortic root size is normal. IVC Not well visulized. There is no pericardial effusion. CONCLUSIONS -------- 1. This was a technically difficult study with suboptimal views. 2. Left ventricular wall thickness is normal. 3. Overall left ventricular systolic function is normal with, an EF between 55 - 60 %. 4. The left atrial size is normal. 5. There is mild aortic valve sclerosis. 6. Peak/mean gradient across the Aortic Valve is 15.43mmHg / 7.88mmHg. 7. Mild mitral regurgitation is present. 8. Mild tricuspid regurgitation present. 9. There is no pericardial effusion. PHARMACIST MANAGER: Nena Mosher RDCS
[2021-06-03 12:48] VITALS: BP 138/92; PULSE 80
--- NOTE | 2021-06-03 15:31 | HP ---
HISTORY AND PHYSICAL DATE OF SERVICE: 06/03/2021 CHIEF COMPLAINT: Chest pain. HISTORY OF PRESENT ILLNESS: This 50-year-old woman with a past medical history of hypertension, history of DJD, being followed by Dr. Hernadez in the outpatient setting, is complaining of chest pain which was going on for the last several days. The pain was felt in the anterior part and right side of the chest also. The patient was seen by Cardiology. A stress test was done which was reported as negative; the final report is pending at this time. Cardiology recommended outpatient followup. A 2D echo with Doppler was also done which showed ejection fraction 55% to 60%. The patient also has some fluctuation in the blood pressure. The patient also reports some anxiety. There is no history of any fever, rigor or chills at this time. PAST MEDICAL HISTORY: History of hypertension, history of hysterectomy, DJD. MEDICATIONS: Ultram, Effexor, Ozempic, Norvasc, Lopressor, Lipitor, aspirin, Tylenol. Doses are reviewed. ALLERGIES: CODEINE and LOSARTAN. FAMILY HISTORY: No history of heart disease or strokes in the family. SOCIAL HISTORY: No history of smoking. Occasional alcohol intake. REVIEW OF SYSTEMS: ENT: No diminished hearing. No diminished vision. CARDIOVASCULAR SYSTEM: As mentioned earlier. RESPIRATORY SYSTEM: As mentioned earlier. GI: No nausea, vomiting, diarrhea. : No dysuria. NERVOUS SYSTEM: No numbness, weakness. ALLERGY/IMMUNOLOGY: No asthma or hay fever. MUSCULOSKELETAL: As mentioned earlier. HEMATOLOGY/ONCOLOGY: No history of anemia. ENDOCRINE: No history of diabetes or hypothyroidism. CONSTITUTIONAL: As mentioned earlier. DERMATOLOGY: Negative. RHEUMATOLOGY: Negative. PSYCHIATRY: As mentioned earlier. PHYSICAL EXAMINATION: Patient alert and oriented x3. Pulse 73, blood pressure 133/90, respiration 17, temperature 98.2, pulse ox 97% on room air. HEENT: Conjunctivae normal. NECK: No jugular venous distention. CARDIOVASCULAR: S1, S2 muffled. RESPIRATION: Breath sounds diminished at the bases. No rhonchi. No crackles. ABDOMEN: Soft, nontender. No mass palpable. LEGS: No edema. No swelling. NERVOUS SYSTEM: Higher functions as mentioned earlier. Moves all 4 limbs. No focal motor or sensory deficit. LYMPHATICS: No lymph node palpable in neck, axillae or groin. SKIN: No ulcer, rash, bleeding. JOINTS: No active deforming arthropathy. LABS: CBC within normal limits. D-dimer is 0.78. Sodium 137, potassium 3.2. CT angio: no evidence of pulmonary embolism. Chest x-ray normal. ASSESSMENT: 1. Chest pain, possibly musculoskeletal, nonspecific. Negative stress test. 2. Elevated D-dimer without any evidence of pulmonary embolism. 3. Mild hypokalemia. 4. Hypertension. 5. Obesity with body mass index 36.9. 6. Social stressors. RECOMMENDATIONS AND DISCUSSION: In this 50-year-old woman who presented with multiple complex medical issues, we will monitor the patient closely. Cardiology recommended that the patient be discharged, with the following medications and advice recommended for discharge: 1. Diet is cardiac diet. 2. Activity limited until followup. 3. Follow up with Dr. Hernadez in 2-3 days. 4. Follow with Cardiology as recommended. 5. Effexor XR 75 mg p.o. daily. 6. Lopressor 25 mg b.i.d. 7. Norvasc 5 mg p.o. daily. 8. Ozempic 1 mg subcutaneously. 9. Ultram 50 to 100 mg p.o. q.6 p.r.n. 10.Aspirin 81 mg p.o. daily. 11.Lipitor 80 mg p.o. daily. 12.Tylenol 650 q.6 p.r.n. 13.Xanax 0.5 p.o. b.i.d. p.r.n. MMODL / ETHELN: [id number] /
--- NOTE | 2021-06-03 16:06 | ECHOS ---
STRESS ECHOCARDIOGRAM INDICATIONS: Chest pain BASELINE HEART RATE: 73 BASELINE BLOOD PRESSURE: 152/100 MAXIMUM HEART RATE: 148 MAXIMUM BLOOD PRESSURE: 200/97 85% MPHR: 146 100% MPHR: 172 METS: 8.5 MAXIMUM STAGE REACHED: 3 TOTAL EXERCISE TIME: 7:18 CLINICAL INFORMATION: Baseline rhythm is sinus mechanism, rate of 73, normal axis and intervals. Left ventricular hypertrophy. Baseline blood pressure 152/100 mmHg. Patient exercised on Jose protocol for 7 minutes 18 seconds, reaching peak rate of 148 beats per minute, which is equal to 86% of maximum predicted heart rate. Peak blood pressure 195/95 mmHg. Test was terminated secondary to fatigue. There was no chest pain. Electrocardiograph monitoring revealed no evidence of diagnostic ischemic ST deviation. FINDINGS: Baseline echocardiogram revealed normal wall motion. At peak exercise there was normal wall thickening and motion without any dyskinesis or hypokinesis. CONCLUSION: 1. Average exercise tolerance with normal echocardiograph response to exercise. 2. Normal stress echocardiogram with no evidence of stress-induced ischemia. MMODL / IJN: [id number] /
[2021-06-04] MEDS ORDERED: ASPIRIN 325 MG TAB PO SCH (09:00)
[2021-06-04] MEDS ORDERED: ASPIRIN 81 MG PO SCH (09:00)
== END 2021-06-03 15:05 | disposition home or self-care (01) ==
LOC: EC 20:27 → 6NMEDSUR 06-03 01:15
PROVIDERS: ADMIT Hospitalist; ATTEND Hospitalist
DX: R07.89 Other chest pain (principal); R79.89 Other specified abnormal findings of blood chemistry; R06.02 Shortness of breath; I10 Essential (primary) hypertension; I08.3 Combined rheumatic disorders of mitral, aortic and tricuspid valves; E87.6 Hypokalemia; M19.90 Unspecified osteoarthritis, unspecified site; F41.9 Anxiety disorder, unspecified; F43.9 Reaction to severe stress, unspecified; Z68.36 Body mass index [BMI] 36.0-36.9, adult; E66.9 Obesity, unspecified; Z79.899 Other long term (current) drug therapy; Z20.822 Contact with and (suspected) exposure to COVID-19; Z88.5 Allergy status to narcotic agent; Z88.8 Allergy status to other drugs, medicaments and biological substances; Z90.710 Acquired absence of both cervix and uterus; Z98.890 Other specified postprocedural states
CPT/HCPCS: 96374; 99285; 36415; 93005; 93306; 93351; 85379; 83880; 80053; 84443; 83690; 83735; 84100; 84484 ×2; 85025; 85610; 85730; 80306; 80143; 87635; 80179; 71046; 71275; G0378; Q9950; Q9967

== ENCOUNTER → 2021-07-06 | Outpatient (CLI) | payer BC ==
--- NOTE | 2021-07-06 17:06 | US ---
EXAMINATION TYPE: US pelvic complete DATE OF EXAM: 07/06/2021 COMPARISON: CT 2018 CLINICAL HISTORY: 51-year-old female R10.2 Pelvic perineal pain. Pt states generalized pelvic and santos k pain TECHNIQUE: Transabdominal sonographic images of the pelvis were acquired. Date of LMP: 2017 when uterus was removed FINDINGS: EXAM MEASUREMENTS: Right Ovary: 2.8 x 3.1 x 2.2 cm Left Ovary: 2.9 x 2.1 x 1.6 cm 1. Uterus: Surgically absent 2. Endometrium: Surgically absent 3. Right Ovary: Two adjacent cysts, largest cyst measuring = 1.9 x 1.6 x 1.7 cm 4. Left Ovary: Small cyst= 1.9 x 1.1 x 1.6 cm 5. Bilateral Adnexa: wnl 6. Posterior cul-de-sac: wnl IMPRESSION: 1. A couple cysts within each ovary measuring up to 1.9 cm on either side. Findings probably physiolo gic. Consider 3 month follow-up to reassess. 2. Status post hysterectomy.
== END | disposition home or self-care (01) ==
LOC: RADUSWWP 14:52
PROVIDERS: ATTEND Internal Medicine
DX: N83.201 Unspecified ovarian cyst, right side (principal); N83.202 Unspecified ovarian cyst, left side; Z90.710 Acquired absence of both cervix and uterus
CPT/HCPCS: 76856

== ENCOUNTER → 2021-12-29 | Outpatient (CLI) | payer BC ==
--- NOTE | 2021-12-29 14:26 | NM ---
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 Images acq uired 3 hours post injection. FINDINGS: Degenerative uptake is noted about the shoulders, sternoclavicular joints, lower lumbar spine, bilate ral hips, knees as well as the ankles and feet. No intense uptake to suggest fracture or osseous lesi on. IMPRESSION: Degenerative uptake as noted above.
== END | disposition home or self-care (01) ==
LOC: RADNMMAIN 10:29
PROVIDERS: ATTEND Neurological Surgery
DX: G95.9 Disease of spinal cord, unspecified (principal)
CPT/HCPCS: 78306; A9503

== ENCOUNTER → 2022-01-04 | Outpatient (CLI) | payer BC ==
--- NOTE | 2022-01-04 22:07 | CT ---
EXAMINATION TYPE: CT cervical spine wo con DATE OF EXAM: 01/04/2022 COMPARISON: None available HISTORY: CHRONIC PAIN CT DLP: 738.8 mGycm Automated exposure control for dose reduction was used. TECHNIQUE: CT scan of the cervical spine is obtained without contrast, axial images are obtained, sa gittal and coronal reformatted images are also reviewed. FINDINGS: Preserved cervical curvature. No significant anterolisthesis or retrolisthesis. No definite vertebral body collapse or acute displaced fracture. Unremarkable atlantoaxial and atlantooccipital articulati ons. Degenerative changes of the cervical spine with opposing osteophytosis, degenerative discs and uncove rtebral osteoarthropathy, seen at C5-6 and C6-7 levels. Bilateral C7-T1 facet osteoarthropathy. At C2-3 level: No significant disc disease, central spinal canal stenosis or neural foraminal stenosi s. At C3-4 level: No significant disc disease, central spinal canal stenosis or neuroforaminal stenosis. At C4-5: Small central posterior disc protrusion, causing no significant central spinal canal stenosi s or significant neuroforaminal stenosis. At C5-6 level: Posterior disc osteophyte complex, causing no significant central spinal canal stenosi s and mild right neuroforaminal stenosis. At C6-7 level: Large posterior disc osteophytes complex, causing moderate central spinal canal stenos is and severe bilateral neuroforaminal stenosis, more on the right side. Ligamentum flavum calcifications are seen at T1-2, T2-3 and T3-4 levels. Unremarkable prevertebral so ft tissue. IMPRESSION: Degenerative changes at C5-6 and C6-7 levels as detailed above, please correlate clinically. Further MRI assessment can be considered if clinically required.
--- NOTE | 2022-01-04 22:18 | CT ---
EXAMINATION TYPE: CT lumbar spine wo con DATE OF EXAM: 01/04/2022 6:42 PM COMPARISON: MRI dated 12/04/2017 HISTORY: CHRONIC PAIN CT DLP: 1565.8 mGycm Automated exposure control for dose reduction was used. Technique: Unenhanced CT of the lumbar spine was performed. Bone and soft tissue window settings are submitted as well as coronal and sagittal reconstructions. FINDINGS: Preserved lumbar lordosis. No significant anterolisthesis or retrolisthesis. No definite vertebral riais dy collapse or acute displaced fracture. Degenerative changes at L5-S1 level with opposing endplate o steophytosis, irregularity and degenerated disc. Mild multilevel facet osteoarthropathy is noted. L1-L2: No significant disc disease, central spinal canal stenosis or neuroforaminal stenosis. L2-L3: Bilateral facet osteoarthropathy. No significant disc disease, central spinal canal stenosis o r neuroforaminal stenosis. L3-L4: Mild diffuse posterior disc bulge with prominent posterior epidural fat, causing no significan t central spinal canal stenosis or significant neural foraminal stenosis. L4-L5: Diffuse posterior disc bulge with focal central posterior protrusion, associated with mild kay ateral facet osteoarthropathy and prominent posterior epidural fat, causing mild central spinal canal stenosis without significant neural foraminal stenosis. L5-S1: Markedly degenerative disc with diffuse posterior disc bulge, posterior osteophytosis and mild facet osteoarthropathy, causing no significant central spinal canal stenosis, mild right and moderat e left neuroforaminal stenosis, compressing the left L5 nerve root. Suspected compression of S1 nerve roots in their lateral recesses. Suspected right ovarian/adnexal cyst measuring 3.2 cm, not completely included in the scan. Recommend correlation with pelvic ultrasound results. No paraspinal lesion. IMPRESSION: L4-5 and L5-S1 DDD as detailed above, please correlate clinically. Further MRI assessment can be cons idered if clinically required. Other incidental findings as described above.
== END | disposition home or self-care (01) ==
LOC: RADCTMAIN 18:12
PROVIDERS: ATTEND Neurological Surgery
DX: M50.221 Other cervical disc displacement at C4-C5 level (principal); M47.812 Spondylosis without myelopathy or radiculopathy, cervical region; M99.71 Connective tissue and disc stenosis of intervertebral foramina of cervical region; M51.37 Other intervertebral disc degeneration, lumbosacral region; M47.816 Spondylosis without myelopathy or radiculopathy, lumbar region; M48.061 Spinal stenosis, lumbar region without neurogenic claudication; M99.73 Connective tissue and disc stenosis of intervertebral foramina of lumbar region
CPT/HCPCS: 72125; 72131

== ENCOUNTER → 2022-01-05 | Outpatient (CLI) | payer BC ==
--- NOTE | 2022-01-06 01:35 | MR ---
EXAMINATION TYPE: MR brain/cspine wo/w DATE OF EXAM: 01/05/2022 COMPARISON: None HISTORY: Back pain, syringomyelia and syringobulia. CONTRAST: Standard multiplanar, multisequence MRI departmental protocol images were obtained without contrast a nd with 11 mL intravenous Gadavist gadolinium contrast. Ventricles have normal size. There is no mass effect or midline shift. There is no sign of intracrani al hemorrhage. Diffusion images show no sign of an acute infarct. Brainstem is intact. No evidence of cerebral edema. Contrast images show no pathologic intracranial enhancement. There is normal enhancement of the venou s sinuses. Corpus callosum appears normal. Sella turcica appears normal. No evidence of orbital mass. IMPRESSION: Negative MR scan of the brain. MRI scan cervical spine. The cervical vertebrae are fairly normal spacing and alignment. There is small posterior disc herniat ions from C4 to C7. There is some impingement on the cervical spinal cord at C6-7. The spinal canal i s narrowed to 6 mm at C6-7 with some effacement of the cord. No cord edema. Canal measures 8 mm at C5 -6. No compression fracture. No cervical paraspinal mass. Posterior elements are intact. There is no path ologic enhancement of the cervical spine. IMPRESSION: Multilevel posterior disc bulging and herniation and is larger at C6-7. There is C6-7 6 mm spinal isis nosis and slight flattening of the cord. No cord edema is seen. No evidence of a syrinx or tumor.
== END | disposition home or self-care (01) ==
LOC: RADMRIMAIN 20:41
PROVIDERS: ATTEND Neurological Surgery
DX: M50.223 Other cervical disc displacement at C6-C7 level (principal); M48.02 Spinal stenosis, cervical region
CPT/HCPCS: 70553; 72156; A9585

== ENCOUNTER → 2022-01-08 | Outpatient (CLI) | payer BC ==
--- NOTE | 2022-01-09 13:15 | MR ---
MR thoracic spine HISTORY: G 95.9, back pain Multiplanar multisequence and postcontrast images of the thoracic spine, patient received 11 cc Gadav ist IV Correlation MR thoracic spine 12/20/2018 Thoracic vertebral bodies show stable height, alignment, bone marrow signal, there is no significant foraminal encroachment or spinal stenosis. Multilevel spondylosis with endplate discogenic marrow sig nal changes are present. Degenerative disc changes are also noted the cervical spine. There is a slig ht spinal curvature. The previously identified syrinx is again noted, stable. Facet arthropathy changes are present. No ab normal enhancement. There are some abnormal attenuation is questioned in the right upper lobe, possib ly right lower lobe, axial image 8 series 1001, axial image 16 series 901 IMPRESSION: Stable syrinx. Question abnormal density within the lungs, consider chest x-ray, chest CT as indicated, correlate for possible pneumonia.
== END | disposition home or self-care (01) ==
LOC: RADMRIMAIN 07:18
PROVIDERS: ATTEND Neurological Surgery
DX: M54.6 Pain in thoracic spine (principal); G95.9 Disease of spinal cord, unspecified
CPT/HCPCS: 72157; A9585

== ENCOUNTER → 2022-02-25 | Outpatient (CLI) | payer BC ==
--- NOTE | 2022-02-25 08:16 | XR ---
EXAMINATION TYPE: XR chest 2V DATE OF EXAM: 02/25/2022 COMPARISON: CTA chest June 02, 2021 HISTORY: Presurgical study. TECHNIQUE: Frontal and lateral views of the chest are obtained. FINDINGS: There is no suspicious focal air space opacity, pleural effusion, or pneumothorax seen. T he cardiac silhouette size remains within normal limits. The osseous structures are intact. IMPRESSION: No acute process. No significant change from prior studies.
[2022-02-25 09:19] LABS: INR 0.9 (<1.2); Partial Thromboplastin Time 22.4 sec (22.0-30.0); Prothrombin Time 9.8 sec (9.0-12.0)
[2022-02-25 14:02] LABS: Basophils # (A) 0.03 X 10*3/uL (0.00-0.10); Basophils % (A) 0.5 %; Eosinophils # (A) 0.35 X 10*3/uL (0.04-0.35); Eosinophils % (A) 5.7 %; HCT 38.8 % (37.2-46.3); HGB 12.4 g/dL (12.0-15.0); Immature Grans, Automated 0.5 %; Lymphocytes # (A) 1.68 X 10*3/uL (0.90-5.00); Lymphocytes % (A) 27.6 %; MCH 28.1 pg (27.0-32.0); MCV 87.8 fL (80.0-97.0); Monocytes # (A) 0.37 X 10*3/uL (0.20-1.00); Monocytes % (A) 6.1 %; NRBC Per 100 WBC 0 /100 WBCS (0.0-0.0); Neutrophils # (A) 3.63 X 10*3/uL (1.80-7.70); Neutrophils % (A) 59.6 %; Platelet Count 306 X 10*3/uL (140-440); RBC 4.42 X 10*6/uL (4.10-5.20); RDW 13.4 % (11.5-14.5); WBC 6.09 X 10*3/uL (4.50-10.00)
[2022-02-25 14:36] LABS: Appearance,Urine Clear (Clear); Bilirubin,Urine Negative (Negative); Blood,Urine Negative (Negative); Color,Urine Yellow (Yellow); Ketones,Urine Negative (Negative); Nitrite,Urine Negative (Negative); Specific Gravity,Urine 1.017 (1.001-1.030)
[2022-02-25 15:29] LABS: Albumin 4.3 g/dL (3.8-4.9); Albumin/Globulin Ratio 1.54 (1.60-3.17); BUN/Creat Ratio 11.78 Ratio (12.00-20.00); Blood Urea Nitrogen 10.6 mg/dL (9.0-27.0); Calcium 9.3 mg/dL (8.7-10.3); Globulin 2.8 g/dL (1.6-3.3); Non-African American GFR(CKD) 75.1 (60.0-200.0); Potassium 3.7 mmol/L (3.5-5.5); Total Bilirubin 0.9 mg/dL (0.30-1.20); Total Protein 7.1 g/dL (6.2-8.2)
== END | disposition home or self-care (01) ==
LOC: LABWHC1 07:39
PROVIDERS: ATTEND Neurological Surgery
DX: Z01.818 Encounter for other preprocedural examination (principal); G95.0 Syringomyelia and syringobulbia; G95.9 Disease of spinal cord, unspecified; M50.00 Cervical disc disorder with myelopathy, unspecified cervical region
CPT/HCPCS: 36415; 71046; 80053; 81003; 83036; 85025; 85610; 85730; 87070; 93005

== ENCOUNTER → 2022-07-15 | Outpatient (CLI) | payer BC ==
--- NOTE | 2022-07-15 10:35 | BD ---
EXAMINATION TYPE: Axial Bone Density DATE OF EXAM: 07/15/2022 COMPARISON: FIRST DEXA AT [facility] CLINICAL HISTORY: 52 years year old Female. ICD-10 CODE: G95.9 Disease of spinal cord Z13.820 Osteop orosis Height: 68IN Weight: 247LB FRAX RISK QUESTIONS: History of Fracture in Adulthood: YES Secondary Osteoporosis: 3. Menopause before 45: AT 47 RISK FACTORS HISTORY OF: History of Wrist Fracture: YES, LEFT When: ABOUT 12 YEARS AGO Surgery to Spine/Hip(right/left)/Wrist (right/left): CERVICAL SURGERY, LEFT WRIST SURGERY When: FEBRUARY 2022 Active: LIMITED Postmenopausal woman: YES MEDICATIONS: Additional Medications: BP MED Additional History: EXAM MEASUREMENTS: Bone mineral densitometry was performed using the [employer] System. Bone mineral density as measured about the Lumbar spine is: ----- L1-L4(G/cm2): 1.209 T Score Values are as follows: ----- L1: 0.6 ----- L2: 0.0 ----- L3: -0.2 ----- L4: 0.4 ----- L1-L4: 0.2 FIRST DEXA AT [facility] Bone mineral density about the R hip (g/cm2): 1.023 Bone mineral density about the L hip (g/cm2): 0.981 T Score values are as follows: -----R Neck: -0.6 -----L Neck: -0.3 -----R Total: 0.1 -----L Total: -0.2 FRAX%s: The graph provided illustrates a 6.2% chance for a major osteoporotic fx and a 0.2% chance fo r the hips probability for fx in 10 years time. IMPRESSION: Normal (Values between +1 and -1 indicate normal bone mass). Consider repeating this study in 5 year s or sooner if there is some new clinical indication. NOTE: T-SCORE=SD OF THE YOUNG ADULT MEAN.
== END | disposition home or self-care (01) ==
LOC: RADBDWWP 08:48
PROVIDERS: ATTEND Neurological Surgery
DX: Z13.820 Encounter for screening for osteoporosis (principal); G95.9 Disease of spinal cord, unspecified; Z78.0 Asymptomatic menopausal state
CPT/HCPCS: 77080

== ENCOUNTER → 2023-03-22 | Outpatient (CLI) | payer BC ==
[2023-03-22 12:26] LABS: Basophils # (A) 0.03 X 10*3/uL (0.00-0.10); Basophils % (A) 0.6 %; Eosinophils # (A) 0.31 X 10*3/uL (0.04-0.35); HCT 41.2 % (37.2-46.3); HGB 13.7 d/dL (12.0-15.0); Lymphocytes # (A) 1.56 X 10*3/uL (0.90-5.00); MCH 29.5 pg (27.0-32.0); MCHC 33.3 d/dL (32.0-37.0); MCV 88.8 FL (80.0-97.0); Mean Platelet Volume 10.2 FL (9.5-12.2); Monocytes # (A) 0.37 X 10*3/uL (0.20-1.00); Monocytes % (A) 7.1 %; NRBC Per 100 WBC 0 X 10*3/uL (0.00-0.01); Neutrophils # (A) 2.91 X 10*3/uL (1.80-7.70); Neutrophils % (A) 55.9 %; Platelet Count 270 X 10*3/uL (140-440); RBC 4.64 X 10*6/uL (4.10-5.20); RDW 13.3 % (11.5-14.5)
[2023-03-22 13:08] LABS: ALT 21 U/L (8-44); AST 16 U/L (13-35); Albumin 4.4 d/dL (3.8-4.9); Albumin/Globulin Ratio 1.91 Ratio (1.60-3.17); Alkaline Phosphatase 96 U/L (41-126); Calcium 9.2 mg/dL (8.7-10.3); Carbon Dioxide 24.8 mmol/L (21.6-31.8); Chloride 105 mmol/L (96-109); Chol/HDL Ratio 3.91 Ratio; Globulin 2.3 d/dL (1.6-3.3); Glucose 101 mg/dL (70-110); Potassium 4.1 mmol/L (3.5-5.5); Sodium 141 mmol/L (135-145); Total Bilirubin 0.9 mg/dL (0.3-1.2); Total Protein 6.7 d/dL (6.2-8.2); VLDL Calculation 15.84 mg/dL (5.00-40.00)
== END | disposition home or self-care (01) ==
LOC: LABWHC1 07:28
PROVIDERS: ATTEND Internal Medicine
DX: Z00.01 Encounter for general adult medical examination with abnormal findings (principal); I10 Essential (primary) hypertension; E78.00 Pure hypercholesterolemia, unspecified
CPT/HCPCS: 36415; 80053; 80061; 85025

== ENCOUNTER → 2023-09-22 | Outpatient (CLI) | payer BC ==
[2023-09-22 11:32] LABS: Basophils # (A) 0.04 X 10*3/uL (0.00-0.10); Basophils % (A) 0.8 %; Eosinophils # (A) 0.32 X 10*3/uL (0.04-0.35); Eosinophils % (A) 6.5 %; HCT 43.1 % (37.2-46.3); HGB 14.8 g/dL (12.0-15.0); Immature Grans, Automated 0 %; Lymphocytes # (A) 1.73 X 10*3/uL (0.90-5.00); MCH 31.2 pg (27.0-32.0); MCHC 34.3 g/dL (32.0-37.0); MCV 90.7 FL (80.0-97.0); Mean Platelet Volume 9.7 FL (9.5-12.2); Monocytes # (A) 0.31 X 10*3/uL (0.20-1.00); Monocytes % (A) 6.3 %; NRBC Per 100 WBC 0 X 10*3/uL (0.00-0.01); Neutrophils # (A) 2.54 X 10*3/uL (1.80-7.70); Neutrophils % (A) 51.4 %; Platelet Count 309 X 10*3/uL (140-440); RBC 4.75 X 10*6/uL (4.10-5.20); RDW 11.8 % (11.5-14.5); WBC 4.94 X 10*3/uL (4.50-10.00)
[2023-09-22 13:52] LABS: ALT 15 U/L (8-44); AST 18 U/L (13-35); Albumin 4.3 g/dL (3.8-4.9); Albumin/Globulin Ratio 1.65 Ratio (1.60-3.17); Alkaline Phosphatase 95 U/L (41-126); Blood Urea Nitrogen 18.3 mg/dL (9.0-27.0); Calcium 9.5 mg/dL (8.7-10.3); Carbon Dioxide 26.9 mmol/L (21.6-31.8); Chloride 104 mmol/L (96-109); Chol/HDL Ratio 5.34 Ratio; Globulin 2.6 g/dL (1.6-3.3); Glucose 90 mg/dL (70-110); LDL Cholesterol,Calculated 194.7 mg/dL (0.0-131.0); Potassium 4.3 mmol/L (3.5-5.5); Sodium 140 mmol/L (135-145); Total Bilirubin 0.8 mg/dL (0.3-1.2); Total Protein 6.9 g/dL (6.2-8.2); VLDL Calculation 14.16 mg/dL (5.00-40.00)
== END | disposition home or self-care (01) ==
LOC: LABWHC1 07:33
PROVIDERS: ATTEND Internal Medicine
DX: Z00.01 Encounter for general adult medical examination with abnormal findings (principal); I10 Essential (primary) hypertension; E78.00 Pure hypercholesterolemia, unspecified
CPT/HCPCS: 36415; 80053; 80061; 85025

== ENCOUNTER → 2024-02-05 | Outpatient (CLI) | payer BC ==
--- NOTE | 2024-02-06 09:41 | MR ---
EXAMINATION TYPE: MR lumbar spine wo con DATE OF EXAM: 02/05/2024 6:23 PM CLINICAL INDICATION:Female, 53 years old with history of M54.16 RADICULOPATHY, LUMBAR REGION; PHH, Lo w back pain COMPARISON: 01/08/2022, 12/13/2017, 12/20/2018 TECHNIQUE: Multi planar, multi sequence imaging was performed utilizing: T1-weighted, T2-weighted, a nd turbo inversion recovery imaging of the lumbar spine. IV Contrast: cc . (None if empty) FINDINGS: Alignment: The lumbar vertebral bodies have preserved heights and alignment. Cord: The conus medullaris and the distal spinal cord appear unremarkable with regards to their signa l intensity and morphology. Bones/Discs: Mild degeneration changes throughout the spine with osteophyte formation and facet joint arthropathy. Multilevel disc desiccation is present. Reactive adjoining endplate edema at L4-L5 and L5-S1 Modic endplate changes along the inferior endplate of L4 and the adjoining endplates of L5-S1 C entral cord syrinx partially visualized the cauda equina similar to prior. T12-L1: No evidence of significant spinal canal stenosis or neural foraminal stenosis. L1-L2: No evidence of significant spinal canal stenosis or neural foraminal stenosis. L2-L3: No evidence of significant spinal canal stenosis or neural foraminal stenosis. L3-L4: No evidence of significant spinal canal stenosis or neural foraminal stenosis. L4-L5: Disc bulge and facet joint arthropathy result in mild spinal canal and mild to moderate left a nd mild right bilateral neural foraminal stenosis. L5-S1: The disc has a rounded posterior morphology without significant spinal canal stenosis. Facet j oint arthropathy with mild to moderate bilateral neural foraminal stenosis. No significant spinal canal or neural foraminal stenosis in the remainder of the visualized levels. Other findings: High T2 signal renal cortical probable cyst. IMPRESSION: No significant change from 2018. 1. No definitive evidence of disc herniation or significant spinal canal stenosis. 2. [id number]-[id number] disc degeneration with associated osteoarthritic changes. No evidence for signif icant neural foraminal stenosis. 3. Cauda equina syrinx as seen on prior in 2018 measuring up to 1 mm in diameter and at least 2.6 cm in length. This is seen better on prior MRI T-spine.
== END | disposition home or self-care (01) ==
LOC: RADMRIMAIN 17:49
PROVIDERS: ATTEND Physical Medicine & Rehabilitation Brain Injury Medicine
DX: M51.16 Intervertebral disc disorders with radiculopathy, lumbar region (principal); M47.26 Other spondylosis with radiculopathy, lumbar region
CPT/HCPCS: 72148

== ENCOUNTER → 2024-09-25 | Outpatient (CLI) | payer BC ==
[2024-09-25 15:48] LABS: HCT 41.1 % (37.2-46.3); HGB 14.2 g/dL (12.0-15.0); MCH 30.7 pg (27.0-32.0); MCHC 34.5 g/dL (32.0-37.0); Mean Platelet Volume 9.6 FL (9.5-12.2); NRBC Per 100 WBC 0 X 10*3/uL (0.00-0.01); Platelet Count 284 X 10*3/uL (140-440); RBC 4.62 X 10*6/uL (4.10-5.20); RDW 12.3 % (11.5-14.5); WBC 4.64 X 10*3/uL (4.50-10.00)
[2024-09-25 15:49] LABS: Basophils # (A) 0.04 X 10*3/uL (0.00-0.10); Basophils % (A) 0.9 %; Eosinophils # (A) 0.22 X 10*3/uL (0.04-0.35); Eosinophils % (A) 4.7 %; Lymphocytes % (A) 34.5 %; Monocytes # (A) 0.32 X 10*3/uL (0.20-1.00); Monocytes % (A) 6.9 %; Neutrophils # (A) 2.45 X 10*3/uL (1.80-7.70); Neutrophils % (A) 52.8 %
[2024-09-25 16:04] LABS: ALT 36 U/L (8-44); AST 24 U/L (13-35); Albumin 4.5 g/dL (3.8-4.9); Albumin/Globulin Ratio 1.96 Ratio (1.60-3.17); Alkaline Phosphatase 90 U/L (41-126); BUN/Creat Ratio 12.27 Ratio (12.00-20.00); Blood Urea Nitrogen 13.5 mg/dL (9.0-27.0); Calcium 9.7 mg/dL (8.7-10.3); Carbon Dioxide 26.8 mmol/L (21.6-31.8); Chloride 103 mmol/L (96-109); Chol/HDL Ratio 2.81 Ratio; Globulin 2.3 g/dL (1.6-3.3); Glucose 89 mg/dL (70-110); Sodium 140 mmol/L (135-145); Total Bilirubin 1.7 mg/dL (0.3-1.2); Total Protein 6.8 g/dL (6.2-8.2); VLDL Calculation 15.74 mg/dL (5.00-40.00)
== END | disposition home or self-care (01) ==
LOC: LABWHC1 11:25
PROVIDERS: ATTEND Internal Medicine
DX: I10 Essential (primary) hypertension (principal); E78.00 Pure hypercholesterolemia, unspecified
CPT/HCPCS: 36415; 80053; 80061; 85025

== ENCOUNTER → 2024-09-27 | Outpatient (CLI) | payer BC ==
--- NOTE | 2024-09-27 11:43 | MM ---
Reason for Exam: Screening (asymptomatic). Last mammogram was performed 8 year(s) and 8 month(s) ago. Patient History: Menarche at age 17. First Full-Term at age 24. Hysterectomy at age 48. Patient has history of breast feeding. Patient used Hormonal Contraceptives for 6 years. Risk Values: Celia 5 year model risk: 0.9%. NCI Lifetime model risk: 7.1%. Prior Study Comparison: 01/29/2016 Bilateral Screening Mammogram, [facility]. Tissue Density: The breasts are heterogeneously dense, which may obscure small masses. Findings: Analyzed By CAD. Slight change in position of the breast may account for the appearance of asymmetric densities on the left CC view, 2 located medially at a middle depth and one laterally at a mid to posterior depth. Further evaluation is recommended. Otherwise, no significant change. Overall Assessment: Incomplete: need additional imaging evaluation, BI-RAD 0 Management: Special View Mammogram of the left breast. [facility] will attempt to contact patient to return for supplemental views and ultrasound if indicated. [facility], , 09/27/2024 11:40 AM. Electronically signed and approved by: Maddison Hurt M.D. Radiologist
== END | disposition home or self-care (01) ==
LOC: RADMAMWWP 11:16
PROVIDERS: ATTEND Internal Medicine
DX: Z12.31 Encounter for screening mammogram for malignant neoplasm of breast (principal); R92.333 Mammographic heterogeneous density, bilateral breasts; Z92.0 Personal history of contraception
CPT/HCPCS: 77063; 77067

== ENCOUNTER → 2024-10-02 | Outpatient (CLI) | payer BC ==
--- NOTE | 2024-10-03 13:14 | MM ---
Reason for Exam: Additional evaluation requested from abnormal screening. Last screening mammogram was performed less than 1 month ago. Patient History: Menarche at age 17. First Full-Term at age 24. Hysterectomy at age 48. Patient has history of breast feeding. Patient used Hormonal Contraceptives for 6 years. Risk Values: Celia 5 year model risk: 0.9%. NCI Lifetime model risk: 7.1%. Prior Study Comparison: 01/29/2016 Bilateral Screening Mammogram, [facility]. 09/27/2024 Bilateral MG 3D screening mammo w/cad, [facility]. Tissue Density: Left: The breasts are heterogeneously dense, which may obscure small masses. Findings: Analyzed By CAD. No Persistent nodule or mass additional spot compression views. Overall Assessment: Benign, BI-RAD 2 Management: Screening Mammogram of both breasts in 1 year. . Results were given to the patient verbally at the time of exam. Patient should continue monthly self-breast exams. A clinical breast exam by your physician is recommended on an annual basis. This exam should not preclude additional follow-up of suspicious palpable abnormalities. Note on Celia scores and lifetime risk: 1. A Celia score greater than 3% is considered moderate risk. If this is the case, consider specialist referral to assess eligibility for a risk reducing agent. 2. If overall lifetime risk for the development of breast cancer is 20% or higher, the patient may qualify for future screening with alternating mammogram and breast MRI. [facility], , 10/02/2024 7:45 AM. Electronically signed and approved by: Jose De Jesus Todd M.D. Radiologis
== END | disposition home or self-care (01) ==
LOC: RADMAMWWP 07:22
PROVIDERS: ATTEND Internal Medicine
DX: R92.8 Other abnormal and inconclusive findings on diagnostic imaging of breast (principal); R92.332 Mammographic heterogeneous density, left breast; Z92.0 Personal history of contraception
CPT/HCPCS: 77061; 77065